=== PATIENT | female | born 1980 ===

== ENCOUNTER 2024-10-29 08:55 | Emergency (ER) | payer OTHER ==
[~2024-10-29] VITALS: Ht 162.6 cm; Wt 66.7 kg
[2024-10-29 09:26] VITALS: BP 104/67; O2SAT 99
== END 2024-10-29 10:37 | disposition home or self-care (01) ==
LOC: ER 08:55
DX: R04.0 Epistaxis (principal); Z88.6 Allergy status to analgesic agent